=== PATIENT | female | born 1950 | race Two or more races ===

== ENCOUNTER 2019-07-15 10:24 | Outpatient (CLI) | payer OTHER | END 2019-07-15 10:52 | disposition home or self-care (01) | LOC: NUCLEAR 10:24 | DX: I87.2 Venous insufficiency (chronic) (peripheral) (principal) ==

== ENCOUNTER 2019-07-22 08:17 | Outpatient (CLI) | payer OTHER ==
[2019-07-22] MEDS ORDERED: PEPCID AC20 MG PO (12:42)
[2019-07-22] MEDS ORDERED: NEXIUM 24HR20 M1 PO (12:42)
== END 2019-07-22 08:40 | disposition home or self-care (01) ==
LOC: LAB 08:17
DX: D64.89 Other specified anemias (principal); E88.89 Other specified metabolic disorders; D68.8 Other specified coagulation defects; N39.0 Urinary tract infection, site not specified; Z22.322 Carrier or suspected carrier of Methicillin resistant Staphylococcus aureus; Z76.89 Persons encountering health services in other specified circumstances; I49.8 Other specified cardiac arrhythmias; E55.9 Vitamin D deficiency, unspecified; M85.88 Other specified disorders of bone density and structure, other site; E21.2 Other hyperparathyroidism; M81.8 Other osteoporosis without current pathological fracture; E56.1 Deficiency of vitamin K

== ENCOUNTER 2019-07-22 10:54 | Outpatient (CLI) | payer OTHER ==
[2019-07-22] MEDS ORDERED: NEXIUM 24HR20 M1 PO (12:42)
[2019-07-22] MEDS ORDERED: PEPCID AC20 MG PO (12:42)
== END 2019-07-22 11:08 | disposition home or self-care (01) ==
LOC: NUCLEAR 10:54
DX: I87.2 Venous insufficiency (chronic) (peripheral) (principal)

== ENCOUNTER 2020-01-25 18:17 | Outpatient (CLI) | payer OTHER ==
[~2020-01-25 18:17] MED LIST: NEXIUM 24HR20 M1 PO; PEPCID AC20 MG PO
== END 2020-01-25 18:30 | disposition home or self-care (01) ==
LOC: LAB 18:17 → RAD 18:17 → LAB 18:30
PROVIDERS: ATTEND Orthopaedic Surgery
DX: D64.89 Other specified anemias (principal); E88.89 Other specified metabolic disorders; D68.8 Other specified coagulation defects; N39.0 Urinary tract infection, site not specified; Z22.322 Carrier or suspected carrier of Methicillin resistant Staphylococcus aureus; Z76.89 Persons encountering health services in other specified circumstances

== ENCOUNTER 2020-02-08 10:31 | Outpatient (CLI) | payer OTHER ==
[~2020-02-08] VITALS: Ht 165.1 cm; Wt 75.3 kg
== END 2020-02-08 11:00 | disposition home or self-care (01) ==
LOC: OFIC 805 10:31
PROVIDERS: ATTEND Otolaryngology Otology & Neurotology
DX: R26.89 Other abnormalities of gait and mobility (principal); R42 Dizziness and giddiness

== ENCOUNTER 2020-02-10 15:47 | Inpatient (IN) | payer OTHER ==
[~2020-02-10] VITALS: Ht 165.1 cm; Wt 75.3 kg
[2020-02-14] MEDS ORDERED: XARELTO10 M1 (11:48)
[2020-02-19] MEDS ORDERED: ROLLATOR (12:21)
== END 2020-02-19 12:40 | disposition home or self-care (01) | DRG 470 ==
LOC: SURH 02-14 09:00 → O/R 02-14 10:31 → SURH 02-14 13:55
PROVIDERS: ADMIT Orthopaedic Surgery; ATTEND Orthopaedic Surgery
PROC: 0SRD0J9 Replacement of Left Knee Joint with Synthetic Substitute, Cemented, Open Approach (ICD-10-PCS; principal; 2020-02-14 09:00)
DX: M17.12 Unilateral primary osteoarthritis, left knee (principal); D62 Acute posthemorrhagic anemia; M54.5 Low back pain; Z53.29 Procedure and treatment not carried out because of patient's decision for other reasons; K21.9 Gastro-esophageal reflux disease without esophagitis; R10.31 Right lower quadrant pain

== ENCOUNTER → 2020-02-23 13:13 | Outpatient (CLI) | payer OTHER ==
[~2020-02-23 13:13] MED LIST changes: +ROLLATOR; +XARELTO10 M1
== END | disposition home or self-care (01) ==
LOC: LAB 13:13
PROVIDERS: ATTEND Orthopaedic Surgery
DX: M25.462 Effusion, left knee (principal)

== ENCOUNTER 2020-02-27 12:42 | Outpatient (CLI) | payer OTHER | END 2020-02-27 13:04 | disposition home or self-care (01) | LOC: NUCLEAR 12:42 | PROVIDERS: ATTEND Orthopaedic Surgery | DX: I87.2 Venous insufficiency (chronic) (peripheral) (principal) ==

== ENCOUNTER 2020-03-07 11:02 | Outpatient (CLI) | payer OTHER | END 2020-03-07 14:47 | disposition home or self-care (01) | LOC: LAB 11:02 | PROVIDERS: ATTEND Orthopaedic Surgery | DX: D64.89 Other specified anemias (principal); M06.4 Inflammatory polyarthropathy; E88.89 Other specified metabolic disorders ==

== ENCOUNTER → 2020-08-09 09:51 | Outpatient (CLI) | payer OTHER | END | disposition home or self-care (01) | LOC: LAB 09:51 | PROVIDERS: ATTEND Orthopaedic Surgery | DX: E21.2 Other hyperparathyroidism (principal); M85.88 Other specified disorders of bone density and structure, other site; E55.9 Vitamin D deficiency, unspecified; E88.89 Other specified metabolic disorders; E56.1 Deficiency of vitamin K ==

== ENCOUNTER 2021-04-10 14:06 | Outpatient (CLI) | payer OTHER | END 2021-04-10 14:15 | disposition home or self-care (01) | LOC: RAD 14:06 | PROVIDERS: ATTEND Orthopaedic Surgery | DX: M79.641 Pain in right hand (principal) ==

== ENCOUNTER 2021-11-14 07:59 | Outpatient (CLI) | payer OTHER | END 2021-11-14 08:09 | disposition home or self-care (01) | LOC: RAD 07:59 | PROVIDERS: ATTEND Orthopaedic Surgery | DX: S82.64XA Nondisplaced fracture of lateral malleolus of right fibula, initial encounter for closed fracture (principal) ==

== ENCOUNTER 2022-02-03 11:34 | Outpatient (CLI) | payer OTHER | END 2022-02-03 11:40 | disposition home or self-care (01) | LOC: RAD 11:34 | PROVIDERS: ATTEND Orthopaedic Surgery | DX: S82.64XD Nondisplaced fracture of lateral malleolus of right fibula, subsequent encounter for closed fracture with routine healing (principal); M25.531 Pain in right wrist; M25.532 Pain in left wrist; M79.641 Pain in right hand ==

== ENCOUNTER 2022-08-18 06:48 | Outpatient (CLI) | payer OTHER | END 2022-08-18 06:56 | disposition home or self-care (01) | LOC: LAB 06:48 | PROVIDERS: ATTEND Orthopaedic Surgery | DX: D64.89 Other specified anemias (principal); E88.89 Other specified metabolic disorders; D68.8 Other specified coagulation defects; N39.0 Urinary tract infection, site not specified; A49.02 Methicillin resistant Staphylococcus aureus infection, unspecified site; Z76.89 Persons encountering health services in other specified circumstances; I49.9 Cardiac arrhythmia, unspecified; I10 Essential (primary) hypertension ==

== ENCOUNTER 2022-10-06 09:50 | Outpatient (CLI) | payer OTHER | END 2022-10-06 09:51 | disposition home or self-care (01) | LOC: LAB 09:50 | PROVIDERS: ATTEND Orthopaedic Surgery | DX: E55.9 Vitamin D deficiency, unspecified (principal); M85.9 Disorder of bone density and structure, unspecified; E56.1 Deficiency of vitamin K ==

== ENCOUNTER 2023-07-23 11:40 | Outpatient (CLI) | payer OTHER ==
[2023-07-23 12:44] LABS: URINE APPEARANCE Clear; URINE BILIRRUBIN Negative (NEGATIVE); URINE BLOOD Negative; URINE COLOR Yellow; URINE GLUCOSE Negative (NEGATIVE); URINE LEUKOCYTE Negative; URINE NITRATE Negative; URINE PROTEIN Negative (NEGATIVE); URINE UROBILINOGEN 0.2 E.U./dl
[2023-07-23 12:45] LABS: URINE EPITHELIAL CELLS 12.7 uL (0.0-38.8); URINE RBC 6.3 uL (0.0-20.8); URINE WBC 2.1 uL (0.0-23.2)
[2023-07-23 13:01] LABS: HEMATOCRIT 39.2 % (36.0-45.00); HEMOGLOBIN 13.3 g/dL (12.0-15.00); MEAN CELL VOLUME 88.1 fL (80.00-100.00); MEAN CORPUSCULAR HEMOGLOBIN 29.9 pg (27.00-32.0); PLATELET COUNT 289 K/uL (150-450); RED BLOOD COUNT 4.45 M/uL (4.00-6.00); RED CELL DISTRIBUTION WIDTH 14.2 % (11.5-14.5)
[2023-07-23 13:04] LABS: INR 1.01; PARTIAL THROMBOPLASTIN TIME 26.5 SECONDS (22.0-34.0); PROTHROMBIN TIME 10.6 SECONDS (9.0-11.5)
[2023-07-23 13:08] LABS: ALBUMIN 3.9 gm/dL (3.4-5.0); BILIRUBIN TOTAL 0.39 mg/dL (0.3-1.2); CALCIUM 9.5 mg/dL (8.5-10.1); CREATININE SERUM 0.8 mg/dL (0.55-1.02); GFR 70.71; GLOBULINA 3.5 G/DL (2.4-3.5); POTASSIUM 4.1 mEq/L (3.5-5.1); TOTAL PROTEIN 7.4 gm/dL (6.4-8.2)
[2023-07-23 13:15] LABS: COL EPI 131 SECONDS (82-175)
== END 2023-07-23 12:58 | disposition home or self-care (01) ==
LOC: LAB 11:40
PROVIDERS: ATTEND Orthopaedic Surgery
DX: D64.9 Anemia, unspecified (principal); E88.89 Other specified metabolic disorders; D68.8 Other specified coagulation defects; N39.0 Urinary tract infection, site not specified; Z22.322 Carrier or suspected carrier of Methicillin resistant Staphylococcus aureus; Z76.89 Persons encountering health services in other specified circumstances; I20.9 Angina pectoris, unspecified

== ENCOUNTER 2023-08-13 11:57 | Outpatient (CLI) | payer OTHER ==
[2023-08-13 13:48] LABS: ALBUMIN 4.1 gm/dL (3.4-5.0); BILIRUBIN TOTAL 0.34 mg/dL (0.3-1.2); CALCIUM 9.6 mg/dL (8.5-10.1); CREATININE SERUM 0.74 mg/dL (0.55-1.02); GFR 77.36; GLOBULINA 3.3 G/DL (2.4-3.5); MAGNESIUM 2.2 mg/dL (1.8-2.4); POTASSIUM 4.18 mEq/L (3.5-5.1); TOTAL PROTEIN 7.4 gm/dL (6.4-8.2)
== END 2023-08-13 11:58 | disposition home or self-care (01) ==
LOC: LAB 11:57
PROVIDERS: ATTEND Orthopaedic Surgery
DX: E55.9 Vitamin D deficiency, unspecified (principal); M85.9 Disorder of bone density and structure, unspecified; E56.1 Deficiency of vitamin K; E21.3 Hyperparathyroidism, unspecified; M81.8 Other osteoporosis without current pathological fracture

== ENCOUNTER → 2024-07-21 | Outpatient (CLI) | payer OTHER | END | disposition home or self-care (01) | LOC: RAD 11:48 | PROVIDERS: ATTEND Orthopaedic Surgery | DX: M25.552 Pain in left hip (principal) ==

== ENCOUNTER 2024-07-25 14:12 | Outpatient (CLI) | payer OTHER | END 2024-07-25 14:16 | disposition home or self-care (01) | LOC: LAB 14:12 | PROVIDERS: ATTEND Orthopaedic Surgery | DX: E56.1 Deficiency of vitamin K (principal) ==